=== PATIENT | female | born 1955 | race Caucasian/White ===

== ENCOUNTER 2018-11-24 03:14 | Inpatient (IN) | payer OTHER ==
[~2018-11-24] VITALS: Ht 167.6 cm; Wt 181.0 kg
[~2018-11-24 03:14] MED LIST: ALBU90AE INH; AMLO-150 PO; ASPI-515 PO; FURO40TA6 PO; GABA600T2 PO; IBUP-1223 PO; INSU100C SQ-INSULIN; INSU100I34 SQ-INSULIN; LISI-170 PO; METF500T17 PO; SIMV5TAB5 PO; TOLT4CAP12 PO; [UNRECOGNIZED DRUG - OTHER]
--- NOTE | 2018-11-24 03:25 | NUR ---
PT BIB [facility] C/O FEELING LIKE SHE CANT BREATHE AND THEN FAMILY NOTICING PT SLURRING WORDS. [facility] NOTICED [facility] OF 63 AND GIVEN SIMPLE SUGARS. PT WENT FROM A+Ox2 TO A+Ox4 AFTER SIMPLE SUGAR ADMIN. NEURO FULLY INTACT IN ED AND A+Ox4. ALL MONITORING APPLIED. VSS. CALL LIGHT WITHIN REACH.
--- NOTE | 2018-11-24 03:33 | NUR ---
PT STATES SHE WOULD NOT LIKE TO CHANGE INTO HOSPITAL GOWN "YOUR GOWNS NEVER FIT ME ANWAY. ID RATHER BE COMFORTABLE."
[2018-11-24 04:14] LABS: BASOPHILS # (AUTO) 0.01 x10^3/uL (0-0.1); BASOPHILS % (AUTO) 0 % (0-1); EOSINOPHILS # (AUTO) 0.32 x10^3/uL (0-0.4); EOSINOPHILS % (AUTO) 2 % (1-7); LYMPHOCYTES # (AUTO) 0.57 x10^3/uL (1-3.4); LYMPHOCYTES % (AUTO) 4 % (22-44); MD NO; MEAN CORPUSCULAR HEMOGLOBIN 28.4 pg (27.0-34.8); MEAN CORPUSCULAR HGB CONC 32.4 g/dL (32.4-35.8); MEAN CORPUSCULAR VOLUME 87.5 fL (80-100); MEAN PLATELET VOLUME 9.7 fL (7.4-10.4); MONOCYTES # (AUTO) 0.56 x10^3/uL (0.2-0.8); MONOCYTES % (AUTO) 4 % (2-9); NEUTROPHILS # (AUTO) 13.13 x10^3/uL (1.8-6.8); NEUTROPHILS % (AUTO) 90 % (42-75); PLATELET COUNT 290 x10^3/uL (130-400); RED BLOOD COUNT 3.76 x10^6/uL (3.82-5.3); RED CELL DISTRIBUTION WIDTH 14.3 % (9.6-15.2)
[2018-11-24 04:16] LABS: ALANINE AMINOTRANSFERASE 23 U/L (12-78); ALBUMIN 3.1 g/dL (3.4-5.0); ANION GAP 7 mmol/L (5-15); CALCIUM 8.5 mg/dL (8.5-10.1); CHLORIDE 108 mmol/L (98-107); CREATININE 1.77 mg/dL (0.55-1.02)
[2018-11-24 04:18] LABS: ALKALINE PHOSPHATASE 95 U/L (45-117); BILIRUBIN,TOTAL 0.2 mg/dL (0.2-1.0); TOTAL PROTEIN 7.2 g/dL (6.4-8.2)
--- NOTE | 2018-11-24 04:38 | NUR ---
PT STRAIGHT CATH PER PA ORDER. WHITE/MILKY DISCHARGE NOTED AND WHITE PUSTULES. PA NOTIFIED. PURE WICK APPLIED AT THIS TIME. [facility]G OF 150 OBTAINED MD NOTIFIED.
[2018-11-24 04:51] LABS: CULTURE INDICATED? YES; MICROSCOPIC INDICATED
--- NOTE | 2018-11-24 04:59 | NUR ---
PT OFFERED FOOD ID MD ORDER. PT STATES NOT HUNGRY AND DENYING FOOD.
--- NOTE | 2018-11-24 05:17 | NUR ---
PT FAMILY AT BEDSIDE STILL. NADN. NO IMMEDIATE NEEDS. CALL LIGHT WITHIN REACH. AWAITING UA.
[2018-11-24] MEDS ORDERED: CEFTRIAXONE PMX 1GM/50ML 50 ML IV ONE (05:30)
[2018-11-24] MEDS ORDERED: CEFTRIAXONE PMX 1GM/50ML 50 ML ONE ×2 (05:32→09:59)
--- NOTE | 2018-11-24 05:58 | NUR ---
PRIOR TO ABX THIS RN ASKED MD ABOUT NEED FOR BLOOD CULTURES. NO NEW ORDERS. ABX ADMIN ORDERED.
--- NOTE | 2018-11-24 06:15 | NUR ---
PT FSBG OBTAINED VIA MD ORDER. NADN. NO IMMEDIATE NEEDS OF PT. PT TBADM. AWAITING ADM BED.
--- NOTE | 2018-11-24 06:22 | NUR ---
PT DESATING WHILE SLEEPING TO MID 80'S ON RA. STATES UTILIZING CPAP FOR FORREST @ NIGHT. PUT ON 3 L NC AND SAT 91-95% WHILE SLEEPING.
--- NOTE | 2018-11-24 06:58 | NUR ---
Recieved bedside report from CANDACE Fay. All questions answered. NADN. Pt has call light within reach. Meal tray ordered and will be given to pt when it arrives. No needs expressed at this time.
[2018-11-24] MEDS ORDERED: ONDANSETRON 2MG/ML, 2ML IVPush PRN (07:30)
[2018-11-24] MEDS ORDERED: ACETAMINOPHEN 325 MG TABLET PO PRN (07:30)
[2018-11-24] MEDS ORDERED: PROAIR RESPICLICK INH PRN (07:30)
[2018-11-24] MEDS ORDERED: POLYETHYLENE GLYCOL 17 GM PACKET PO PRN (07:30)
--- NOTE | 2018-11-24 08:22 | NUR ---
Checked pt's FSBG per orders. Please see charting for more information. Pt resting comfortably on gurney watching TV. Pt connected to NIBP and continous pulse ox. Pt remains wearing NC for oxygen at 4.5 L. Pt wears oxygen at home at all times. Pt has call light within reach. All safety measures in place. No needs expressed at this time.
--- NOTE | 2018-11-24 08:34 | NUR ---
Per EMAR, No insulin required at this time for pt's sliding scale. Provided pt breakfast food tray. Pt appreciative.
[2018-11-24] MEDS ORDERED: ENOXAPARIN 30 MG/0.3 ML SQ SCH (09:00)
[2018-11-24] MEDS ORDERED: GABAPENTIN 300 MG CAPSULE ONE (09:59)
[2018-11-24] MEDS ORDERED: ASPIRIN 81 MG TABLET EC ONE (09:59)
[2018-11-24] MEDS: SODIUM CHLORIDE 0.9% 1,000 ML IV SCH ×2 (11:00→21:12)
[2018-11-24] MEDS: CEFTRIAXONE PMX 1GM/50ML 50 ML IV SCH ×2 (11:00→11:08)
[2018-11-24] MEDS: ASPIRIN 81 MG TABLET EC PO SCH (11:01)
[2018-11-24] MEDS: GABAPENTIN 300 MG CAPSULE PO SCH ×3 (11:01→21:11)
--- NOTE | 2018-11-24 11:16 | NUR ---
PIV fluids infusing per emar. Pt's FSBG 218 at this time. Providing medication per EMAR. NADN. No needs expressed at this time.
[2018-11-24] MEDS ORDERED: INSULIN LISPRO 100 UNITS/ML, PEN ONE (11:19)
[2018-11-24] MEDS: INSULIN LISPRO 100 UNITS/ML, PEN SQ-INSULIN SCH ×3 (11:38→22:05)
--- NOTE | 2018-11-24 12:22 | NUR ---
provided pt lunch tray. pt appreciative.
--- NOTE | 2018-11-24 12:54 | NUR ---
LUNCH RN: PT ENJOYING LUNCH AT THIS TIME. PT RESTING IN ROOM. PT HAS NAND OR NEEDS AT THIS TIME.
--- NOTE | 2018-11-24 13:04 | NUR ---
LUNCH RN: BG 280 AT THIS TIME, CANDACE KIM INFORMED.
--- NOTE | 2018-11-24 14:15 | NUR ---
Pt provided IS and educated on how to use it. Pt used IS 10 times. Pt has family at bedside. Pt requesting "Tylenol for my knees please." Will provided pt medication per EMAR.
[2018-11-24] MEDS ORDERED: ACETAMINOPHEN 325 MG TABLET ONE (14:26)
--- NOTE | 2018-11-24 16:13 | NUR ---
PROVIDED REPORT TO CANDACE FORD. ALL QUESTIONS ANSWERED. PT READY TO TRANSFER TO FLOOR FROM ED.
--- NOTE | 2018-11-24 16:29 | NUR ---
PT LEFT ED WITH ALL PERSONAL BELONGINGS AND TRANSFERED TO THE FLOOR.
[2018-11-24 16:38] VITALS: BP 122/63
[2018-11-24 19:41] VITALS: BP 119/72
[2018-11-24] MEDS ORDERED: INSULIN GLARGINE 100 UNITS/ML, PEN SQ-INSULIN SCH (21:00)
[2018-11-24] MEDS: TOLTERODINE TARTRATE 4 MG HOMEMEDPO SCH (21:00)
[2018-11-24] MEDS: SIMVASTATIN 40 MG TABLET PO SCH (21:11)
[2018-11-24] MEDS: AMLODIPINE 5 MG TABLET PO SCH (21:11)
[2018-11-25 01:42] VITALS: BP 121/62
[2018-11-25 04:51] LABS: BASOPHILS # (AUTO) 0.03 x10^3/uL (0-0.1); BASOPHILS % (AUTO) 0 % (0-1); EOSINOPHILS # (AUTO) 0.28 x10^3/uL (0-0.4); EOSINOPHILS % (AUTO) 3 % (1-7); LYMPHOCYTES # (AUTO) 1.22 x10^3/uL (1-3.4); LYMPHOCYTES % (AUTO) 12 % (22-44); MD NO; MEAN CORPUSCULAR HEMOGLOBIN 28.9 pg (27.0-34.8); MEAN CORPUSCULAR HGB CONC 33.3 g/dL (32.4-35.8); MEAN CORPUSCULAR VOLUME 86.8 fL (80-100); MEAN PLATELET VOLUME 9.6 fL (7.4-10.4); MONOCYTES # (AUTO) 0.72 x10^3/uL (0.2-0.8); MONOCYTES % (AUTO) 7 % (2-9); NEUTROPHILS # (AUTO) 7.54 x10^3/uL (1.8-6.8); NEUTROPHILS % (AUTO) 77 % (42-75); PLATELET COUNT 296 x10^3/uL (130-400); RED BLOOD COUNT 3.55 x10^6/uL (3.82-5.3); RED CELL DISTRIBUTION WIDTH 14.1 % (9.6-15.2)
[2018-11-25 05:02] LABS: ANION GAP 3 mmol/L (5-15); CALCIUM 8.7 mg/dL (8.5-10.1); CHLORIDE 109 mmol/L (98-107)
[2018-11-25 05:03] LABS: CREATININE 1.62 mg/dL (0.55-1.02)
[2018-11-25] MEDS: INSULIN LISPRO 100 UNITS/ML, PEN SQ-INSULIN SCH ×4 (07:00→22:03)
[2018-11-25 07:11] VITALS: BP 113/50
[2018-11-25] MEDS: ASPIRIN 81 MG TABLET EC PO SCH (10:19)
[2018-11-25] MEDS: CEFTRIAXONE PMX 1GM/50ML 50 ML IV SCH (10:19)
[2018-11-25] MEDS: GABAPENTIN 300 MG CAPSULE PO SCH ×3 (10:19→21:06)
[2018-11-25] MEDS: INSULIN GLARGINE 100 UNITS/ML, PEN SQ-INSULIN SCH (11:55)
[2018-11-25 12:31] VITALS: BP 130/62
[2018-11-25 14:51] LABS: ALBUMIN 3.1 g/dL (3.4-5.0); ANION GAP 10 mmol/L (5-15); CALCIUM 8.9 mg/dL (8.5-10.1); CHLORIDE 105 mmol/L (98-107); CREATININE 1.68 mg/dL (0.55-1.02)
[2018-11-25 18:45] VITALS: BP 135/76
[2018-11-25] MEDS: TOLTERODINE TARTRATE 4 MG HOMEMEDPO SCH (21:00)
[2018-11-25] MEDS: SIMVASTATIN 40 MG TABLET PO SCH (21:05)
[2018-11-25] MEDS: AMLODIPINE 5 MG TABLET PO SCH (21:06)
[2018-11-26 01:17] VITALS: BP 127/54
[2018-11-26 05:18] LABS: ANION GAP 7 mmol/L (5-15); CALCIUM 8.8 mg/dL (8.5-10.1); CHLORIDE 110 mmol/L (98-107)
[2018-11-26 05:20] LABS: CREATININE 1.51 mg/dL (0.55-1.02)
[2018-11-26] MEDS: INSULIN LISPRO 100 UNITS/ML, PEN SQ-INSULIN SCH ×3 (07:00→17:43)
[2018-11-26] MEDS ORDERED: SODIUM CHLORIDE 0.9% 1,000 ML IV SCH ×2 (07:06)
[2018-11-26 07:14] VITALS: BP 126/64
[2018-11-26] MEDS: ASPIRIN 81 MG TABLET EC PO SCH (08:25)
[2018-11-26] MEDS: CEFTRIAXONE PMX 1GM/50ML 50 ML IV SCH (08:25)
[2018-11-26] MEDS: GABAPENTIN 300 MG CAPSULE PO SCH ×2 (08:28→17:43)
[2018-11-26] MEDS: INSULIN GLARGINE 100 UNITS/ML, PEN SQ-INSULIN SCH (08:28)
[2018-11-26] MEDS ORDERED: INSU100I34 SQ-INSULIN (12:10)
[2018-11-26 14:00] VITALS: BP 133/77
== END 2018-11-26 18:30 | disposition home or self-care (01) | DRG 683 ==
LOC: ED 06:17 → EDIP 06:28 → 3NE 16:37
PROVIDERS: ADMIT Hospitalist; ATTEND Hospitalist
PROC: 0T9B70Z Drainage of Bladder with Drainage Device, Via Natural or Artificial Opening (ICD-10-PCS; 2018-11-24)
PROC: 5A09357 Assistance with Respiratory Ventilation, Less than 24 Consecutive Hours, Continuous Positive Airway Pressure (ICD-10-PCS; principal; 2018-11-25)
DX: N17.9 Acute kidney failure, unspecified (principal); N39.0 Urinary tract infection, site not specified; I13.0 Hypertensive heart and chronic kidney disease with heart failure and stage 1 through stage 4 chronic kidney disease, or unspecified chronic kidney disease; Z68.44 Body mass index [BMI] 60.0-69.9, adult; I50.32 Chronic diastolic (congestive) heart failure; G93.49 Other encephalopathy; E11.649 Type 2 diabetes mellitus with hypoglycemia without coma; N18.9 Chronic kidney disease, unspecified; E11.22 Type 2 diabetes mellitus with diabetic chronic kidney disease; I25.10 Atherosclerotic heart disease of native coronary artery without angina pectoris; J44.9 Chronic obstructive pulmonary disease, unspecified; B96.20 Unspecified Escherichia coli [E. coli] as the cause of diseases classified elsewhere; E66.01 Morbid (severe) obesity due to excess calories; Z79.4 Long term (current) use of insulin; Z87.891 Personal history of nicotine dependence
CPT/HCPCS: 36415; 71045; 80048; 80053; 81001; 82040; 82962; 83735; 84100; 85025; 87077; 87086; 87186; 93005; 94660; 96365; 96372; G0378; J0696; J1650; J1815; J7030